=== PATIENT | female | born 1990 | race Caucasian/White ===

== ENCOUNTER 2019-10-29 07:41 | Emergency (ER) | payer BC ==
[~2019-10-29] VITALS: Ht 162.6 cm; Wt 91.2 kg
[2019-10-29 08:17] VITALS: BP 140/73
--- NOTE | 2019-10-29 08:20 | NUR ---
PATIENT AMBULATED WITH STEADY GAIT TO BED 4.
--- NOTE | 2019-10-29 08:35 | NUR ---
29 Y/O F C/O COUGH, BODY ACHES WITH PAIN 3/10. PT LUNG SOUNDS CLEAR THROUGHOUT. PT STATES SYMPTOMS STARTED X3 DAYS AGO, STATES DAUGHTER IS ALSO SICK AT HOME. PT POSITIONED FOR COMFORT, FLU SWAB PERFORMED, SENT TO LAB. ALLERGIES: CODEINE.
--- NOTE | 2019-10-29 08:38 | NUR ---
FLU SWAB PERFORMED, SENT TO LAB.
[2019-10-29 09:45] VITALS: BP 129/92
--- NOTE | 2019-10-29 09:45 | NUR ---
Patient discharged with v/s stable. Written and verbal after care instructions given and explained. Patient alert, oriented and verbalized understanding of instructions. Ambulatory with steady gait. All questions addressed prior to discharge. ID band removed. Patient advised to follow up with PMD. Rx of TAMIFLU, AUGTMENTIN, AZITHROMYCIN given. Patient educated on indication of medication including possible reaction and side effects. Opportunity to ask questions provided and answered.
== END 2019-10-29 09:45 | disposition home or self-care (01) ==
LOC: MED 07:41
DX: J11.1 Influenza due to unidentified influenza virus with other respiratory manifestations (principal); Z88.5 Allergy status to narcotic agent
CPT/HCPCS: 87804; 99283

== ENCOUNTER 2020-11-03 08:40 | Emergency (ER) | payer BC ==
[~2020-11-03] VITALS: Ht 162.6 cm; Wt 87.3 kg
[2020-11-03 08:42] VITALS: BP 139/76
--- NOTE | 2020-11-03 08:50 | NUR ---
PT TAKEN TO BED 4.
--- NOTE | 2020-11-03 08:51 | NUR ---
30YO F C/O N/V, RUQ ABDOMINAL PAIN RADIATING TO RIGHT SIDE OF BACK SINCE THIS AM. DENIES FEVER, DYSURIA, DIARRHEA. PT TESTED + FOR COVID 1 MONTH AGO. IN ED, VSS. NO ACTIVE VOMITING NOTED. ABDOMEN SOFT, RUQ TENDERNESS UPON PALPATION. BS NORMOACTIVE ON ALL QUADRANTS. PT CHANGED TO PATIENT GOWN. ABLE TO PRODUCE URINE SPECIMEN AT THIS TIME. PT RESTING IN BED COMFORTABLY WITH 1 SIDERAIL UP. ERMD MADE AWARE OF PT STATUS. PMH: RA, LEFT HIP REPLACEMENT ALLERGY: CODINE LMP: LAST WEEK OF SEPTEMBER 2020
--- NOTE | 2020-11-03 08:58 | NUR ---
Patient being evaluated by Dr. Moy at bedside.
[2020-11-03] MEDS ORDERED: NACL 0.9% 1,000 ML IV ONE (09:05)
[2020-11-03] MEDS ORDERED: KETOROLAC 30 MG/ML VIAL IVP ONE (09:05)
--- NOTE | 2020-11-03 09:12 | NUR ---
PT BROUGHT TO CT AT THIS TIME VIA [facility]IM[facility]
[2020-11-03 09:18] LABS: BASOPHILS % (AUTO) 0.2 % (0.0-2.0); EOSINOPHILS % (AUTO) 0.1 % (0.0-4.0); HEMATOCRIT 38.7 % (36-48); HEMOGLOBIN 13.4 g/dL (12.0-16.0); LYMPHOCYTES # (AUTO) 0.5 K/uL (2.5-16.5); LYMPHOCYTES % (AUTO) 6.1 % (20.5-51.1); MEAN CORPUSCULAR HEMOGLOBIN 32 pg (27-31); MEAN CORPUSCULAR HGB CONC 35 g/dL (33-37); MEAN CORPUSCULAR VOLUME 93.7 fL (80-94); MONOCYTES # (AUTO) 0.4 K/uL (0.8-1.0); MONOCYTES % (AUTO) 4.5 % (1.7-9.3); NEUTROPHILS # (AUTO) 7.9 K/uL (1.8-7.7); NEUTROPHILS % (AUTO) 89.1 % (42.2-75.2); PLATELET COUNT (AUTO) 259 K/uL (140-450); RED BLOOD CELL COUNT(AUTO) 4.13 MIL/uL (4.20-5.40); RED CELL DISTRIBUTION WIDTH 13.9 % (11.6-13.7); WHITE BLOOD COUNT (AUTO) 8.8 K/uL (4.8-10.8)
[2020-11-03 09:44] LABS: ALBUMIN 4.3 g/dL (3.4-5.0); POTASSIUM 3.6 mmol/L (3.5-5.1); TOTAL BILIRUBIN 0.6 mg/dL (0.0-1.0)
[2020-11-03 10:00] LABS: BILIRUBIN,URINE NEGATIVE (NEGATIVE); BLOOD, URINE 3+ (NEGATIVE); COLOR,URINE YELLOW (YELLOW); LEUKOCYTE ESTERASE ,URINE NEGATIVE (NEGATIVE); NITRITE, URINE NEGATIVE (NEGATIVE); UGLUCOSE NEGATIVE (NEGATIVE)
[2020-11-03 10:32] VITALS: BP 139/76
--- NOTE | 2020-11-03 10:33 | NUR ---
Patient discharged with v/s stable. Written and verbal after care instructions given and explained. Patient verbalized understanding. Ambulatory with steady gait. All questions addressed prior to discharge. Advised to follow up with PMD.
[2020-11-03 10:36] LABS: RBC,URINE 50-80 /HPF (0-5)
[2020-11-03 10:37] LABS: APPEARANCE,URINE SLIGHTLY HAZY (CLEAR); WBC,URINE 0-5 /HPF (0-5)
[2020-11-03 11:05] LABS: ANION GAP 3.7 (8-16); CARBON DIOXIDE 35.9 mmol/L (21-32)
== END 2020-11-03 10:33 | disposition home or self-care (01) ==
LOC: MED 08:40
DX: N20.0 Calculus of kidney (principal); Z88.5 Allergy status to narcotic agent
CPT/HCPCS: 36415; 74176; 80053; 81001; 82150; 83690; 85025; 87086; 96361; 96374; 99284; J1885; J7030

== ENCOUNTER 2021-05-13 22:13 | Inpatient (IN) | payer BC, SELFPAY ==
[~2021-05-13] VITALS: Ht 162.6 cm; Wt 80.7 kg
[2021-05-13 22:20] VITALS: BP 114/77
[2021-05-13 22:50] VITALS: BP 116/64
[2021-05-14 00:45] LABS: BASOPHILS % (AUTO) 0.5 % (0.0-2.0); EOSINOPHILS % (AUTO) 0.1 % (0.0-4.0); HEMATOCRIT 41.1 % (36-48); HEMOGLOBIN 14.2 g/dL (12.0-16.0); LYMPHOCYTES # (AUTO) 0.5 K/uL (2.5-16.5); LYMPHOCYTES % (AUTO) 7.2 % (20.5-51.1); MEAN CORPUSCULAR HEMOGLOBIN 33 pg (27-31); MEAN CORPUSCULAR HGB CONC 35 g/dL (33-37); MEAN CORPUSCULAR VOLUME 96.5 fL (80-94); MONOCYTES # (AUTO) 0.3 K/uL (0.8-1.0); MONOCYTES % (AUTO) 3.6 % (1.7-9.3); NEUTROPHILS # (AUTO) 6.4 K/uL (1.8-7.7); PLATELET COUNT (AUTO) 308 K/uL (140-450); RED BLOOD CELL COUNT(AUTO) 4.25 MIL/uL (4.20-5.40); RED CELL DISTRIBUTION WIDTH 12.6 % (11.6-13.7); WHITE BLOOD COUNT (AUTO) 7.2 K/uL (4.8-10.8)
[2021-05-14 01:12] LABS: ALBUMIN 4.4 g/dL (3.4-5.0); ANION GAP 17.3 (8-16); CARBON DIOXIDE 24.3 mmol/L (21-32); CREATININE 0.7 mg/dL (0.6-1.3); POTASSIUM 3.6 mmol/L (3.5-5.1); TOTAL BILIRUBIN 2.4 mg/dL (0.0-1.0)
[2021-05-14 01:14] LABS: NEUTROPHILS % (AUTO) 88.6 % (42.2-75.2)
[2021-05-14] MEDS ORDERED: NACL 0.9% 1,000 ML IV ONE (01:25)
[2021-05-14] MEDS ORDERED: KETOROLAC 15 MG/ML VIAL IVP ONE (01:25)
[2021-05-14] MEDS ORDERED: ONDANSETRON 4 MG/2 ML VIAL IVP ONE (01:30)
[2021-05-14] MEDS ORDERED: MORPHINE SULFATE 4 MG/ML SYR IVP ONE (01:30)
[2021-05-14] MEDS ORDERED: cefTRIAXone 1,000 MG VIAL ONE ×2 (01:46→09:06)
[2021-05-14 03:06] LABS: PROTHROMBIN TIME 10.5 secs (10.8-13.4)
[2021-05-14] MEDS ORDERED: MELO7.5T11 PO (06:20)
[2021-05-14] MEDS ORDERED: VITA1TAB44 PO (06:20)
[2021-05-14] MEDS ORDERED: VITD400 PO (06:20)
[2021-05-14] MEDS ORDERED: [UNRECOGNIZED DRUG - CODE] MC (06:20)
[2021-05-14] MEDS ORDERED: DOCUSATE SODIUM 100 MG GELCAP PO PRN (08:25)
[2021-05-14] MEDS ORDERED: MAG SULF 2000 MG/WATER PREMIX 50 ML IV PRN (08:25)
[2021-05-14] MEDS ORDERED: POTASSIUM CHLORIDE 40 MEQ, LIDOCAINE MPF 1% 25 MG in NACL 0.9% 250 ML IV PRN (08:25)
[2021-05-14] MEDS ORDERED: ACETAMINOPHEN 325 MG TAB PO PRN (08:25)
[2021-05-14] MEDS ORDERED: SODIUM PHOS / POTASSIUM PHOS 1 PKT PDR PO PRN (08:25)
[2021-05-14 08:52] LABS: MAGNESIUM 2.1 mg/dL (1.8-2.4); PHOSPHORUS 3.8 mg/dL (2.5-4.9)
[2021-05-14] MEDS: DEXT 5% /NACL 0.9% 1,000 ML IV SCH (09:26)
[2021-05-14] MEDS: PANTOPRAZOLE 40 MG INJ VIAL IVP SCH (10:00)
[2021-05-14] MEDS ORDERED: LACTATED RINGERS 500 ML IV SCH (10:20)
[2021-05-14] MEDS: KETOROLAC 15 MG/ML VIAL IVP PRN (10:31)
[2021-05-14 12:20] VITALS: BP 118/57
[2021-05-14] MEDS: metroNIDAZOLE 500 MG/NS PREMIX 100 ML IV SCH ×2 (13:45→20:34)
[2021-05-14 16:00] VITALS: BP 111/55
[2021-05-14] MEDS: ONDANSETRON 4 MG/2 ML VIAL IM/IVP PRN (20:01)
[2021-05-14] MEDS: MORPHINE SULFATE 2 MG/ML SYR IVP PRN (20:34)
[2021-05-14 21:00] VITALS: BP 110/50
[2021-05-15] MEDS: ONDANSETRON 4 MG/2 ML VIAL IM/IVP PRN ×2 (00:42→05:59)
[2021-05-15] MEDS: KETOROLAC 15 MG/ML VIAL IVP PRN ×4 (00:42→20:18)
[2021-05-15] MEDS: MORPHINE SULFATE 2 MG/ML SYR IVP PRN ×3 (03:11→18:29)
[2021-05-15 04:00] VITALS: BP 104/64
[2021-05-15] MEDS: DEXT 5% /NACL 0.9% 1,000 ML IV SCH (06:00)
[2021-05-15] MEDS: metroNIDAZOLE 500 MG/NS PREMIX 100 ML IV SCH ×3 (06:00→20:07)
[2021-05-15] MEDS ORDERED: MECLIZINE 25 MG TAB PO PRN (06:50)
[2021-05-15] MEDS ORDERED: METOCLOPRAMIDE 10 MG/2 ML INJ VIAL IVP PRN (06:50)
[2021-05-15] MEDS ORDERED: METOCLOPRAMIDE 10 MG/2 ML INJ VIAL ONE (07:00)
[2021-05-15 07:26] LABS: ALBUMIN 3.5 g/dL (3.4-5.0); ANION GAP 14.9 (8-16); CARBON DIOXIDE 22.5 mmol/L (21-32); CREATININE 0.8 mg/dL (0.6-1.3); POTASSIUM 3.4 mmol/L (3.5-5.1); TOTAL BILIRUBIN 1.7 mg/dL (0.0-1.0)
[2021-05-15 07:32] LABS: BASOPHILS % (AUTO) 0.6 % (0.0-2.0); EOSINOPHILS # (AUTO) 0.1 K/uL (0-0.4); EOSINOPHILS % (AUTO) 1.1 % (0.0-4.0); HEMATOCRIT 36.5 % (36-48); HEMOGLOBIN 12.4 g/dL (12.0-16.0); LYMPHOCYTES # (AUTO) 0.9 K/uL (2.5-16.5); LYMPHOCYTES % (AUTO) 19.4 % (20.5-51.1); MEAN CORPUSCULAR HEMOGLOBIN 33 pg (27-31); MEAN CORPUSCULAR HGB CONC 34 g/dL (33-37); MEAN CORPUSCULAR VOLUME 97.9 fL (80-94); MONOCYTES # (AUTO) 0.4 K/uL (0.8-1.0); MONOCYTES % (AUTO) 8.1 % (1.7-9.3); NEUTROPHILS # (AUTO) 3.4 K/uL (1.8-7.7); NEUTROPHILS % (AUTO) 70.8 % (42.2-75.2); PLATELET COUNT (AUTO) 242 K/uL (140-450); RED BLOOD CELL COUNT(AUTO) 3.73 MIL/uL (4.20-5.40); RED CELL DISTRIBUTION WIDTH 12.7 % (11.6-13.7); WHITE BLOOD COUNT (AUTO) 4.8 K/uL (4.8-10.8)
[2021-05-15 08:00] VITALS: BP 142/96
[2021-05-15] MEDS: PANTOPRAZOLE 40 MG INJ VIAL IVP SCH (09:04)
[2021-05-15] MEDS ORDERED: fentaNYL citrate 0.05 MG/ML VIAL ONE (09:33)
[2021-05-15] MEDS ORDERED: MIDAZOLAM 2 MG/2 ML VIAL ONE (09:34)
[2021-05-15] MEDS ORDERED: PROPOFOL 200 MG/20 ML VIAL IV ONE (09:35)
[2021-05-15] MEDS ORDERED: SUCCINYLCHOLINE CHLORIDE 200 MG/10 ML VIAL IVP ONE (09:35)
[2021-05-15] MEDS ORDERED: BUPIVACAINE-MPF/EPI 0.25% 30 ML VIAL INJ ONE (09:54)
[2021-05-15] MEDS ORDERED: MORPHINE SULFATE 4 MG/ML SYR IVP PRN (13:25)
[2021-05-15 16:00] VITALS: BP 134/75
[2021-05-15 20:00] VITALS: BP 130/70
[2021-05-16] VITALS: BP 121/56
[2021-05-16] MEDS: MORPHINE SULFATE 2 MG/ML SYR IVP PRN ×2 (01:24→16:07)
[2021-05-16] MEDS: DEXT 5% /NACL 0.9% 1,000 ML IV SCH ×2 (03:42→20:25)
[2021-05-16] MEDS: metroNIDAZOLE 500 MG/NS PREMIX 100 ML IV SCH ×3 (05:00→21:00)
[2021-05-16] MEDS ORDERED: fentaNYL citrate 0.05 MG/ML VIAL ONE (07:24)
[2021-05-16] MEDS ORDERED: MIDAZOLAM 2 MG/2 ML VIAL ONE (07:24)
[2021-05-16] MEDS ORDERED: PROPOFOL 200 MG/20 ML VIAL IV ONE (07:25)
[2021-05-16] MEDS ORDERED: SUCCINYLCHOLINE CHLORIDE 200 MG/10 ML VIAL IVP ONE (07:25)
[2021-05-16] MEDS ORDERED: BUPIVACAINE-MPF/EPI 0.25% 30 ML VIAL INJ ONE (07:41)
[2021-05-16] MEDS ORDERED: SEVOFLURANE 250 ML BTL INH ONE (07:45)
[2021-05-16] MEDS ORDERED: ROCURONIUM 50 MG/5 ML VIAL IV ONE (08:04)
[2021-05-16] MEDS ORDERED: ONDANSETRON 4 MG/2 ML VIAL ONE (08:06)
[2021-05-16] MEDS ORDERED: DEXAMETHASONE 4 MG/ML VIAL ONE (08:07)
[2021-05-16] MEDS ORDERED: MEPERIDINE 50 MG/ML SYR ONE (08:29)
[2021-05-16] MEDS: PANTOPRAZOLE 40 MG INJ VIAL IVP SCH (09:00)
[2021-05-16] MEDS ORDERED: diphenhydrAMINE 50 MG/ML VIAL IVP PRN (09:10)
[2021-05-16] MEDS ORDERED: MEPERIDINE 25 MG/ML SYR IVP PRN (09:10)
[2021-05-16] MEDS ORDERED: LACTATED RINGERS 1,000 ML IV SCH (09:10)
[2021-05-16] MEDS ORDERED: ONDANSETRON 4 MG/2 ML VIAL IVP PRN (09:10)
[2021-05-16] MEDS ORDERED: SUGAMMADEX SODIUM 200 MG/2 ML VIAL IV ONE (09:11)
[2021-05-16] MEDS ORDERED: HYDROmorphone PFS 2 MG/ML SYR ONE (10:09)
[2021-05-16] MEDS: HYDROmorphone 1 MG/ML AMP IVP PRN ×2 (10:12→10:22)
[2021-05-16 10:50] VITALS: BP 130/76
[2021-05-16] MEDS: IBUPROFEN 400 MG TAB PO PRN ×2 (11:47→20:56)
[2021-05-16 16:00] VITALS: BP 130/66
[2021-05-16] MEDS: ONDANSETRON 4 MG/2 ML VIAL IM/IVP PRN (21:02)
[2021-05-17] VITALS: BP 142/69
[2021-05-17] MEDS: MORPHINE SULFATE 2 MG/ML SYR IVP PRN ×2 (03:33→08:07)
[2021-05-17] MEDS: metroNIDAZOLE 500 MG/NS PREMIX 100 ML IV SCH ×2 (05:00→13:32)
[2021-05-17] MEDS: PANTOPRAZOLE 40 MG INJ VIAL IVP SCH (08:23)
[2021-05-17 09:16] LABS: BASOPHILS % (AUTO) 0.2 % (0.0-2.0); EOSINOPHILS # (AUTO) 0.1 K/uL (0-0.4); EOSINOPHILS % (AUTO) 0.7 % (0.0-4.0); HEMOGLOBIN 12.3 g/dL (12.0-16.0); LYMPHOCYTES % (AUTO) 10.8 % (20.5-51.1); MEAN CORPUSCULAR HEMOGLOBIN 34 pg (27-31); MEAN CORPUSCULAR HGB CONC 34 g/dL (33-37); MEAN CORPUSCULAR VOLUME 98.4 fL (80-94); MONOCYTES # (AUTO) 0.5 K/uL (0.8-1.0); MONOCYTES % (AUTO) 5.5 % (1.7-9.3); NEUTROPHILS # (AUTO) 7.9 K/uL (1.8-7.7); NEUTROPHILS % (AUTO) 82.8 % (42.2-75.2); PLATELET COUNT (AUTO) 237 K/uL (140-450); RED BLOOD CELL COUNT(AUTO) 3.66 MIL/uL (4.20-5.40); RED CELL DISTRIBUTION WIDTH 12.8 % (11.6-13.7); WHITE BLOOD COUNT (AUTO) 9.6 K/uL (4.8-10.8)
[2021-05-17 09:20] LABS: ALBUMIN 3.3 g/dL (3.4-5.0); ANION GAP 9.3 (8-16); CARBON DIOXIDE 27.2 mmol/L (21-32); CREATININE 0.7 mg/dL (0.6-1.3); POTASSIUM 3.5 mmol/L (3.5-5.1); TOTAL BILIRUBIN 0.8 mg/dL (0.0-1.0)
[2021-05-17] MEDS: IBUPROFEN 400 MG TAB PO PRN (11:05)
[2021-05-17 12:00] VITALS: BP 131/70
== END 2021-05-17 14:02 | disposition home or self-care (01) | DRG 419 ==
LOC: MED 22:13 → MTU 05-14 06:25
PROVIDERS: ADMIT Hospitalist; ATTEND Hospitalist
PROC: BF101ZZ Fluoroscopy of Bile Ducts using Low Osmolar Contrast (ICD-10-PCS; 2021-05-16)
PROC: 0FT44ZZ Resection of Gallbladder, Percutaneous Endoscopic Approach (ICD-10-PCS; principal; 2021-05-16 09:00)
DX: K80.62 Calculus of gallbladder and bile duct with acute cholecystitis without obstruction (principal); F12.90 Cannabis use, unspecified, uncomplicated; M06.9 Rheumatoid arthritis, unspecified; Z96.649 Presence of unspecified artificial hip joint; E87.6 Hypokalemia; Z20.822 Contact with and (suspected) exposure to COVID-19; R74.01 Elevation of levels of liver transaminase levels; E80.6 Other disorders of bilirubin metabolism; E66.01 Morbid (severe) obesity due to excess calories; Z88.5 Allergy status to narcotic agent; Z68.32 Body mass index [BMI] 32.0-32.9, adult; Z82.61 Family history of arthritis
CPT/HCPCS: 36415; 76705; 80053; 83605; 83690; 83735; 84100; 84703; 85025; 85610; 85730; 86886; 86900; 86901; 87040; 87081; 93005; 96361; 96365; 96375; 99285; C1887; C9113; J0330; J0696; J1100; J1170; J1885; J2001; J2175; J2250; J2270; J2405; J2704; J2765; J3010; J3480; J3490; J7030; J7060; J7120

== ENCOUNTER 2024-04-01 20:27 | Emergency (ER) | payer BC ==
[~2024-04-01] VITALS: Ht 162.6 cm; Wt 87.7 kg
[~2024-04-01 20:27] MED LIST: MELO7.5T11 PO; VITA1TAB44 PO; VITD400 PO; [UNRECOGNIZED DRUG - CODE] MC
[2024-04-01 20:38] VITALS: BP 116/65; PULSE 79; RESP 16; TEMP 97.3; O2SAT 99
[2024-04-01 20:44] VITALS: BP 116/65; PULSE 79; RESP 16; TEMP 97.3; O2SAT 98
[2024-04-01 21:29] VITALS: O2SAT 99
== END 2024-04-01 22:05 | disposition home or self-care (01) ==
LOC: MED 20:27
DX: S50.11XA Contusion of right forearm, initial encounter (principal); Z79.1 Long term (current) use of non-steroidal anti-inflammatories (NSAID); Z79.899 Other long term (current) drug therapy; X58.XXXA Exposure to other specified factors, initial encounter; Y93.89 Activity, other specified; Y92.89 Other specified places as the place of occurrence of the external cause; Y99.8 Other external cause status
CPT/HCPCS: 99284